=== PATIENT | female | born 1985 | race Asian ===

== ENCOUNTER 2019-05-15 14:56 | Emergency (ER) | payer SELFPAY ==
[~2019-05-15] VITALS: Ht 167.6 cm; Wt 59.0 kg
[2019-05-15 15:01] VITALS: BP 127/87; Ht 167.6 cm; Wt 59.0 kg
== END 2019-05-15 18:14 | disposition left against medical advice (07) ==
LOC: ED 14:56
DX: Z53.21 Procedure and treatment not carried out due to patient leaving prior to being seen by health care provider (principal)